=== PATIENT | female | born 2000 | race African-American/Black ===

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

== ENCOUNTER 2025-01-22 17:45 | Emergency (ER) | payer MEDICAID ==
[~2025-01-22] VITALS: Ht 160 cm; Wt 57.0 kg
[~2025-01-22 17:45] MED LIST: IBUP-2741 PO
[2025-01-22 17:47] VITALS: O2SAT 98
[2025-01-22 17:59] VITALS: TEMP 36.7; O2SAT 100
[2025-01-22 20:28] VITALS: BP 107/67; PULSE 85; RESP 18
[2025-01-22] MEDS: KETOROLAC 30MG/ML VIAL IM ONE (20:28)
[2025-01-22] MEDS: DIPHENHYDRAMINE 25MG CAPSULE PO ONE (20:28)
[2025-01-22] MEDS: METOCLOPRAMIDE HCL 10MG/2ML VIAL IM ONE (20:28)
[2025-01-22] MEDS ORDERED: ASPI-1154 PO (22:17)
== END 2025-01-22 23:05 | disposition home or self-care (01) ==
LOC: ER 17:45
DX: G43.909 Migraine, unspecified, not intractable, without status migrainosus (principal); Z79.899 Other long term (current) drug therapy; Z88.0 Allergy status to penicillin
CPT/HCPCS: 99284; 81025; 96372; J1885; Q0163; J2765